=== PATIENT | male | born 1990 | race Caucasian/White ===

== ENCOUNTER → 2016-10-05 | Outpatient (CLI) | payer OTHER ==
[2016-10-05 08:44] LABS: BASO % 0.3 % (0.0-1.0); EOS # 0.2 K/mm3 (0.0-0.50); LYMPH # 3.1 K/mm3 (1.5-6.5); LYMPH % 30.5 % (24.0-44.0); MEAN CORPUSCULAR HEMOGLOBIN 28.9 pg (27.0-33.0); MEAN CORPUSCULAR HGB CONC 34.3 g/dl (32.0-36.5); MEAN CORPUSCULAR VOLUME 84.3 fl (80.0-96.0); MONO # 0.5 K/mm3 (0.0-0.8); MONO % 5.4 % (0.0-5.0); NEUTROPHILS # 5.8 K/mm3 (1.8-7.7); RED CELL DISTRIBUTION WIDTH 12.7 % (11.5-14.5); WHITE BLOOD COUNT 9.6 K/mm3 (4.0-10.0)
[2016-10-05 09:41] LABS: ALBUMIN 4.4 GM/DL (3.2-5.2); ALBUMIN/GLOBULIN RATIO 1.42 (1.00-1.93); ALKALINE PHOSPHATASE 87 U/L (45-117); ALT/SGPT 58 U/L (12-78); ANION GAP 8 MEQ/L (8-16); AST/SGOT 25 U/L (15-37); BILIRUBIN,TOTAL 0.6 MG/DL (0.2-1.0); BLOOD UREA NITROGEN 15 MG/DL (7-18); CALCIUM LEVEL 9.4 MG/DL (8.5-10.1); CARBON DIOXIDE LEVEL 26 MEQ/L (21-32); CHLORIDE LEVEL 110 MEQ/L (98-107); GLOMERULAR FILTRATION RATE > 60.0 (>60); GLUCOSE, FASTING 97 MG/DL (70-105); POTASSIUM SERUM 4.2 MEQ/L (3.5-5.1); SODIUM LEVEL 144 MEQ/L (136-145); TOTAL PROTEIN 7.5 GM/DL (6.4-8.2)
--- NOTE | 2016-10-05 11:45 | REP ---
Right forearm series: Two views. History: Pain in the forearm. Findings: AP and lateral views of the right forearm demonstrate normal bones, joints, soft tissues. No acute bony abnormality. Impression: Negative right forearm radiographs. Signed by Moo Roque MD 10/05/2016 01:55 P
[2016-10-06 10:21] LABS: HEPATITIS B SURFACE ANTIBODY NEGATIVE (POSITIVE)
[2016-10-09 00:11] LABS: HEPATITIS C QUANTITATION 331880 IU/mL (.); HEPATITIS C VIRUS GENOTYPE 3 (.)
== END ==
LOC: M LAB 08:10
PROVIDERS: ATTEND Physician Assistant Medical
DX: B17.10 Acute hepatitis C without hepatic coma (principal)

== ENCOUNTER 2017-06-25 13:35 | Emergency (ER) | payer MEDICAID, SELFPAY ==
[~2017-06-25] VITALS: Ht 167.6 cm; Wt 77.9 kg
[2017-06-25 13:35] VITALS: BP 117/80
== END 2017-06-25 15:56 | disposition left against medical advice (07) ==
LOC: M ED 13:35
DX: Z53.21 Procedure and treatment not carried out due to patient leaving prior to being seen by health care provider (principal)

== ENCOUNTER → 2017-06-25 | Outpatient (CLI) | payer OTHER, SELFPAY ==
--- NOTE | 2017-06-25 13:55 | REP ---
LEFT KNEE SERIES: Five views. HISTORY: Pain in the left knee. FINDINGS: Five views of the left knee demonstrate normal bones, joints, and soft tissues. IMPRESSION: Negative left knee radiographs. Signed by Moo Roque MD 06/25/2017 02:50 P
== END ==
LOC: M RAD 13:16
PROVIDERS: ATTEND Nurse Practitioner Adult Health
DX: M25.562 Pain in left knee (principal)

== ENCOUNTER → 2025-06-17 | Outpatient (CLI) | payer OTHER ==
[2025-06-17 11:24] LABS: BASO # 0.0 10^3/uL (0.0-0.2); BASO % 0.3 % (0.0-1.0); EOS # 0.2 10^3/uL (0.0-0.5); EOS % 2.4 % (0.0-3.0); LYMPH # 2.6 10^3/uL (1.5-5.0); LYMPH % 25.8 % (24.0-44.0); MONO # 0.7 10^3/uL (0.0-0.8); MONO % 7.2 % (2.0-8.0); NEUTROPHILS # 6.4 10^3/uL (1.5-8.5); NEUTROPHILS % 63.9 % (36.0-66.0); PLATELET COUNT, AUTOMATED 385 10^3/uL (150-450)
[2025-06-17 11:58] LABS: ALT/SGPT 40 U/L (7.0-40); AST/SGOT 31 U/L (<34); CALCIUM LEVEL 8.8 MG/DL (8.5-10.1); CARBON DIOXIDE LEVEL 29 MMOL/L (20-31); CHLORIDE LEVEL 107 MMOL/L (98-107); CREATININE FOR GFR 0.81 MG/DL (0.70-1.30); GLOMERULAR FILTRATION RATE > 90.0 (>60); POTASSIUM SERUM 4.6 MMOL/L (3.5-5.1); SODIUM LEVEL 145 MMOL/L (136-145)
[2025-06-17 12:30] LABS: HIV 1&2 SCREEN NEGATIVE (NEGATIVE)
[2025-06-18 12:00] LABS: HCV RNA QUANTITATION 283000.0 IU/mL (NOT DETECTED); HCV RNA log10 5.45 Log IU/mL (NOT DETECTED)
== END ==
LOC: M LAB 09:27
PROVIDERS: ATTEND Emergency Medicine
DX: B18.2 Chronic viral hepatitis C (principal)